=== PATIENT | male | born 1965 | race Caucasian/White ===

== ENCOUNTER 2017-09-09 18:49 | Inpatient (IN) | payer MEDICARE, MEDICAID ==
[~2017-09-09] VITALS: Ht 162.6 cm; Wt 63.6 kg
[2017-09-09] MEDS ORDERED: morphine 2 MG/ML inj. syringe IV PRN ×3 (19:10→21:45)
[2017-09-09] MEDS ORDERED: normal saline 1000ML IV soln IVB ONE (19:10)
[2017-09-09] MEDS ORDERED: azithromycin 250mg tablet PO ONE (19:25)
[2017-09-09] MEDS ORDERED: OMEP10CA4 PO (20:19)
[2017-09-09 20:53] LABS: BASOPHILS % (AUTO) 0.1 % (0-1); EOSINOPHILS # (AUTO) 0.1 X10'3 (0-0.9); HEMATOCRIT 41.5 % (42.0-52.0); HEMOGLOBIN 14.4 g/dl (14.0-17.9); LYMPHOCYTES # (AUTO) 0.9 X10'3 (1.1-4.8); LYMPHOCYTES % (AUTO) 10.7 % (21-51); MEAN CORPUSCULAR HEMOGLOBIN 34.7 PG (27.0-31.0); MEAN CORPUSCULAR HGB CONC 34.8 % (33.0-36.5); MEAN CORPUSCULAR VOLUME 99.6 FL (78-98); MEAN PLATELET VOLUME 7.2 FL (7.4-10.4); MONOCYTES # (AUTO) 0.7 X10'3 (0-0.9); NEUTROPHILS # (AUTO) 6.4 X10'3 (1.8-7.7); NEUTROPHILS % (AUTO) 79.2 % (42-75); PLATELET COUNT 248 X10'3 (140-440); RED BLOOD COUNT 4.16 X10'6 (4.70-6.10); RED CELL DISTRIBUTION WIDTH 13.9 % (11.5-14.5)
[2017-09-09] MEDS ORDERED: temazepam 15mg capsule PO PRN (21:00)
[2017-09-09 21:13] LABS: PARTIAL THROMBOPLASTIN TIME 25 SECONDS (22-32); PROTHROMBIN TIME 10.1 SECONDS (9.0-12.0)
[2017-09-09 21:17] LABS: ALANINE AMINOTRANSFERASE 28 U/L (12-78); ALBUMIN 2.5 G/DL (3.4-5.0); ALBUMIN/GLOBULIN RATIO 0.7 (1.1-1.5); ALKALINE PHOSPHATASE 58 IU/L (46-116); ANION GAP 7 (8-16); ASPARTATE AMINO TRANSFERASE 18 U/L (10-37); BILIRUBIN,TOTAL 0.5 MG/DL (0.1-1.0); BLOOD UREA NITROGEN 14 MG/DL (7-18); BUN/CREATININE RATIO 15.6 (5.4-32.0); CHLORIDE 111 MMOL/L (99-107); GLUCOSE 132 MG/DL (70-104); MAGNESIUM 1.7 MG/DL (1.5-2.4); POTASSIUM 3.3 MMOL/L (3.5-5.1); SODIUM 147 MMOL/L (135-145); TOTAL PROTEIN 6.3 G/DL (6.4-8.2); eGFR 90 ML/MIN
[2017-09-09] MEDS ORDERED: diphenhydrAMINE 25mg capsule PO PRN (21:45)
[2017-09-09] MEDS ORDERED: ondansetron/PF 4mg/2ml inj IV PRN (21:45)
[2017-09-09] MEDS ORDERED: potassium Cl 20 mEq SR tablet PO PRN (21:45)
[2017-09-09] MEDS ORDERED: diphenhydrAMINE 50 mg/ml inj IV PRN (21:45)
[2017-09-09] MEDS ORDERED: acetaminophen 325mg tablet PO PRN (21:45)
[2017-09-09] MEDS ORDERED: HYDROmorphone 1 mg/ml syringe IV PRN ×2 (21:45)
[2017-09-09] MEDS ORDERED: metoclopramide 5 mg/ml inj IV PRN (21:45)
[2017-09-09] MEDS ORDERED: acetaminophen 650mg rectal suppository RC PRN (21:45)
[2017-09-09] MEDS ORDERED: mag hydrox/Alum hydrox/simeth 30ml oral suspension PO PRN (21:45)
[2017-09-09] MEDS ORDERED: potassium Cl 40MEQ/NS 500ml 500 ML IV PRN ×2 (21:45)
[2017-09-09] MEDS ORDERED: bisacodyl 10mg suppository rectal RC PRN (21:45)
[2017-09-09] MEDS ORDERED: magnesium hydroxide 30ml (MOM) UD suspension PO PRN (21:45)
[2017-09-09] MEDS ORDERED: HYDROcodone/acetaminophen 10/325mg tab PO PRN (21:45)
[2017-09-09] MEDS ORDERED: HYDROcodone/acetaminophen 5mg/325mg tablet PO PRN (21:45)
[2017-09-09 22:06] LABS: PHOSPHORUS 3.4 MG/DL (2.3-4.5)
[2017-09-09 22:07] LABS: HEMOGLOBIN A1C 5.7 % (4.5-6.2)
[2017-09-09 22:27] VITALS: BP 129/78
[2017-09-09] MEDS: potassium Cl 20 mEq SR tablet PO PRN (23:06)
[2017-09-09] MEDS: normal saline 1000ml 1,000 ML IV SCH (23:08)
[2017-09-10 06:45] LABS: BASOPHILS # (AUTO) 0.1 X10'3 (0-0.2); BASOPHILS % (AUTO) 1.3 % (0-1); EOSINOPHILS # (AUTO) 0.1 X10'3 (0-0.9); EOSINOPHILS % (AUTO) 2.3 % (0-6); HEMATOCRIT 38.9 % (42.0-52.0); HEMOGLOBIN 13.9 g/dl (14.0-17.9); LYMPHOCYTES # (AUTO) 0.9 X10'3 (1.1-4.8); LYMPHOCYTES % (AUTO) 14.5 % (21-51); MEAN CORPUSCULAR HEMOGLOBIN 34.7 PG (27.0-31.0); MEAN CORPUSCULAR HGB CONC 35.7 % (33.0-36.5); MEAN CORPUSCULAR VOLUME 97.1 FL (78-98); MEAN PLATELET VOLUME 7.1 FL (7.4-10.4); MONOCYTES # (AUTO) 0.7 X10'3 (0-0.9); MONOCYTES % (AUTO) 11.6 % (2-12); NEUTROPHILS # (AUTO) 4.4 X10'3 (1.8-7.7); NEUTROPHILS % (AUTO) 70.3 % (42-75); PLATELET COUNT 237 X10'3 (140-440); RED BLOOD COUNT 4.01 X10'6 (4.70-6.10); RED CELL DISTRIBUTION WIDTH 14.3 % (11.5-14.5); WHITE BLOOD COUNT 6.3 X10'3 (4.5-11.0)
[2017-09-10 07:00] VITALS: BP 115/69
[2017-09-10 07:34] LABS: ALANINE AMINOTRANSFERASE 26 U/L (12-78); ALBUMIN 2.2 G/DL (3.4-5.0); ALBUMIN/GLOBULIN RATIO 0.6 (1.1-1.5); ALKALINE PHOSPHATASE 49 IU/L (46-116); ANION GAP 6 (8-16); ASPARTATE AMINO TRANSFERASE 21 U/L (10-37); BILIRUBIN,TOTAL 0.7 MG/DL (0.1-1.0); BLOOD UREA NITROGEN 12 MG/DL (7-18); CALCIUM 7.7 MG/DL (8.5-10.1); CHLORIDE 110 MMOL/L (99-107); GLUCOSE 111 MG/DL (70-104); MAGNESIUM 1.7 MG/DL (1.5-2.4); POTASSIUM 3.3 MMOL/L (3.5-5.1); SODIUM 146 MMOL/L (135-145); TOTAL CARBON DIOXIDE 29.6 MMOL/L (24-32); TOTAL PROTEIN 5.9 G/DL (6.4-8.2); eGFR > 90 ML/MIN
[2017-09-10] MEDS: heparin, porcine 5000 units/ml vial SQ SCH ×2 (07:52→19:18)
[2017-09-10] MEDS: pantoprazole 40mg Tablet.DR PO SCH (08:00)
[2017-09-10] MEDS: CefTRIAXone/D5W-Rocephin 1gm 50 ML IV SCH ×2 (08:00→19:17)
[2017-09-10] MEDS: azithromycin 250mg tablet PO SCH (08:00)
[2017-09-10] MEDS: docusate sod 100mg capsule PO SCH ×2 (08:01→19:16)
[2017-09-10] MEDS: normal saline 1000ml 1,000 ML IV SCH ×2 (08:02→19:16)
[2017-09-10 10:00] VITALS: BP 123/79
[2017-09-10 18:00] VITALS: BP 136/84
[2017-09-10] MEDS: potassium Cl 20 mEq SR tablet PO PRN ×2 (19:16→23:19)
[2017-09-10 22:20] VITALS: BP 124/85
[2017-09-10] MEDS: acetaminophen 325mg tablet PO PRN (22:26)
[2017-09-11] VITALS (17 sets, daily range): BP systolic 91–146; BP diastolic 74–94
[2017-09-11] MEDS: normal saline 1000ml 1,000 ML IV SCH ×3 (03:35→20:00)
[2017-09-11] MEDS: potassium Cl 20 mEq SR tablet PO PRN (03:35)
[2017-09-11 07:12] LABS: BASOPHILS # (AUTO) 0.1 X10'3 (0-0.2); BASOPHILS % (AUTO) 1.1 % (0-1); EOSINOPHILS # (AUTO) 0.1 X10'3 (0-0.9); EOSINOPHILS % (AUTO) 2.3 % (0-6); HEMATOCRIT 38.4 % (42.0-52.0); HEMOGLOBIN 13.6 g/dl (14.0-17.9); LYMPHOCYTES % (AUTO) 17.5 % (21-51); MEAN CORPUSCULAR HEMOGLOBIN 34.6 PG (27.0-31.0); MEAN CORPUSCULAR HGB CONC 35.3 % (33.0-36.5); MEAN CORPUSCULAR VOLUME 97.8 FL (78-98); MEAN PLATELET VOLUME 7.4 FL (7.4-10.4); MONOCYTES # (AUTO) 0.6 X10'3 (0-0.9); MONOCYTES % (AUTO) 10.8 % (2-12); NEUTROPHILS % (AUTO) 68.3 % (42-75); PLATELET COUNT 243 X10'3 (140-440); RED BLOOD COUNT 3.92 X10'6 (4.70-6.10); RED CELL DISTRIBUTION WIDTH 13.8 % (11.5-14.5); WHITE BLOOD COUNT 5.8 X10'3 (4.5-11.0)
[2017-09-11] MEDS: CefTRIAXone/D5W-Rocephin 1gm 50 ML IV SCH ×2 (07:24→21:59)
[2017-09-11 07:32] LABS: ALANINE AMINOTRANSFERASE 25 U/L (12-78); ALBUMIN 2.1 G/DL (3.4-5.0); ALBUMIN/GLOBULIN RATIO 0.6 (1.1-1.5); ALKALINE PHOSPHATASE 44 IU/L (46-116); ANION GAP 6 (8-16); ASPARTATE AMINO TRANSFERASE 18 U/L (10-37); BILIRUBIN,TOTAL 0.6 MG/DL (0.1-1.0); BLOOD UREA NITROGEN 10 MG/DL (7-18); BUN/CREATININE RATIO 12.5 (5.4-32.0); CALCIUM 7.7 MG/DL (8.5-10.1); CHLORIDE 110 MMOL/L (99-107); GLUCOSE 99 MG/DL (70-104); MAGNESIUM 1.7 MG/DL (1.5-2.4); POTASSIUM 3.4 MMOL/L (3.5-5.1); SODIUM 145 MMOL/L (135-145); TOTAL CARBON DIOXIDE 29.4 MMOL/L (24-32); TOTAL PROTEIN 5.8 G/DL (6.4-8.2); eGFR > 90 ML/MIN
[2017-09-11] MEDS: azithromycin 250mg tablet PO SCH (08:00)
[2017-09-11] MEDS ORDERED: cefazolin 1gm/NS 100mL 100 ML IV ONE (08:00)
[2017-09-11] MEDS: heparin, porcine 5000 units/ml vial SQ SCH ×2 (08:00→20:00)
[2017-09-11] MEDS: pantoprazole 40mg Tablet.DR PO SCH (08:00)
[2017-09-11] MEDS: docusate sod 100mg capsule PO SCH ×2 (08:00→20:00)
[2017-09-11] MEDS ORDERED: ringers solution, lacted 1,000 ML IV SCH (12:26)
[2017-09-11] MEDS ORDERED: morphine 2 MG/ML inj. syringe IV PRN ×2 (12:30)
[2017-09-11] MEDS ORDERED: meperidine/PF 25mg/ml syringe IV PRN ×3 (12:30)
[2017-09-11] MEDS ORDERED: ondansetron/PF 4mg/2ml inj IV PRN (12:30)
[2017-09-11] MEDS ORDERED: proCHLORperazine 10 MG/2 ml inj IV PRN (12:30)
[2017-09-11] MEDS ORDERED: phenylephrine 10mg/ml inj IV ONE (13:25)
[2017-09-11] MEDS ORDERED: fentaNYL/PF 50MCG/1 ML 2ML syringe ONE (13:31)
[2017-09-11] MEDS ORDERED: MIDAZolam 1mg/ml 10ml vial ONE (13:31)
[2017-09-11] MEDS ORDERED: BUPIVAcaine/PF 7.5mg/ml (0.75%) 10ml vial ONE (13:36)
[2017-09-11] MEDS ORDERED: albumin (Human) 5% 250ml 250 ML IV ONE (14:47)
[2017-09-11] MEDS ORDERED: BUPIVAcaine/PF 2.5 mg/ml (0.25%) 30ml vial ONE ×2 (15:29)
[2017-09-11] MEDS ORDERED: diphenhydrAMINE 25mg capsule PO PRN ×2 (15:45)
[2017-09-11] MEDS ORDERED: magnesium hydroxide 30ml (MOM) UD suspension PO PRN (15:45)
[2017-09-11] MEDS ORDERED: acetaminophen 325mg tablet PO PRN (15:45)
[2017-09-11] MEDS ORDERED: bisacodyl 10mg suppository rectal RC PRN (15:45)
[2017-09-11] MEDS: lactobacillus rhamnosus 10,000 MMU CELLS/CAPSULE PO SCH (17:46)
[2017-09-11] MEDS: cefazolin 1gm/NS 100mL 100 ML IV SCH (17:46)
[2017-09-11] MEDS: sennosides 8.6mg tablet PO SCH (21:00)
[2017-09-12] MEDS: cefazolin 1gm/NS 100mL 100 ML IV SCH (01:21)
[2017-09-12 01:40] VITALS: BP 131/78
[2017-09-12 02:00] VITALS: BP 131/78
[2017-09-12 05:00] VITALS: BP 119/86
[2017-09-12 06:41] LABS: BASOPHILS % (AUTO) 0.4 % (0-1); EOSINOPHILS % (AUTO) 0 % (0-6); HEMOGLOBIN 13.2 g/dl (14.0-17.9); LYMPHOCYTES # (AUTO) 0.6 X10'3 (1.1-4.8); MEAN CORPUSCULAR HEMOGLOBIN 34.4 PG (27.0-31.0); MEAN CORPUSCULAR HGB CONC 34.8 % (33.0-36.5); MEAN CORPUSCULAR VOLUME 98.9 FL (78-98); MEAN PLATELET VOLUME 7.4 FL (7.4-10.4); MONOCYTES # (AUTO) 0.7 X10'3 (0-0.9); MONOCYTES % (AUTO) 6.9 % (2-12); NEUTROPHILS # (AUTO) 8.4 X10'3 (1.8-7.7); NEUTROPHILS % (AUTO) 86.7 % (42-75); PLATELET COUNT 253 X10'3 (140-440); RED BLOOD COUNT 3.84 X10'6 (4.70-6.10); RED CELL DISTRIBUTION WIDTH 13.4 % (11.5-14.5); WHITE BLOOD COUNT 9.7 X10'3 (4.5-11.0)
[2017-09-12 07:07] LABS: ALANINE AMINOTRANSFERASE 20 U/L (12-78); ALBUMIN 2.1 G/DL (3.4-5.0); ALBUMIN/GLOBULIN RATIO 0.6 (1.1-1.5); ALKALINE PHOSPHATASE 44 IU/L (46-116); ANION GAP 6 (8-16); ASPARTATE AMINO TRANSFERASE 22 U/L (10-37); BILIRUBIN,TOTAL 0.5 MG/DL (0.1-1.0); BLOOD UREA NITROGEN 10 MG/DL (7-18); BUN/CREATININE RATIO 12.5 (5.4-32.0); CHLORIDE 109 MMOL/L (99-107); GLUCOSE 142 MG/DL (70-104); MAGNESIUM 1.7 MG/DL (1.5-2.4); POTASSIUM 3.7 MMOL/L (3.5-5.1); SODIUM 143 MMOL/L (135-145); TOTAL CARBON DIOXIDE 27.8 MMOL/L (24-32); TOTAL PROTEIN 5.7 G/DL (6.4-8.2); eGFR > 90 ML/MIN
[2017-09-12] MEDS: pantoprazole 40mg Tablet.DR PO SCH (07:27)
[2017-09-12] MEDS: docusate sod 100mg capsule PO SCH ×2 (07:27→20:28)
[2017-09-12] MEDS: azithromycin 250mg tablet PO SCH (07:28)
[2017-09-12] MEDS: lactobacillus rhamnosus 10,000 MMU CELLS/CAPSULE PO SCH ×2 (07:28→16:44)
[2017-09-12] MEDS: CefTRIAXone/D5W-Rocephin 1gm 50 ML IV SCH ×2 (07:29→20:28)
[2017-09-12] MEDS: heparin, porcine 5000 units/ml vial SQ SCH ×2 (07:29→20:28)
[2017-09-12] MEDS: normal saline 1000ml 1,000 ML IV SCH ×2 (09:13→17:18)
[2017-09-12 10:05] VITALS: BP 132/88
[2017-09-12 18:00] VITALS: BP 121/77
[2017-09-12] MEDS: sennosides 8.6mg tablet PO SCH (20:29)
[2017-09-12 22:00] VITALS: BP 119/77
[2017-09-13] MEDS: normal saline 1000ml 1,000 ML IV SCH (03:52)
[2017-09-13] MEDS: acetaminophen 325mg tablet PO PRN (03:54)
[2017-09-13 05:00] VITALS: BP 133/92
[2017-09-13 05:49] LABS: BASOPHILS % (AUTO) 0.1 % (0-1); EOSINOPHILS # (AUTO) 0.1 X10'3 (0-0.9); EOSINOPHILS % (AUTO) 1.4 % (0-6); HEMATOCRIT 38.5 % (42.0-52.0); HEMOGLOBIN 13.3 g/dl (14.0-17.9); LYMPHOCYTES # (AUTO) 0.9 X10'3 (1.1-4.8); LYMPHOCYTES % (AUTO) 9.1 % (21-51); MEAN CORPUSCULAR HEMOGLOBIN 34.3 PG (27.0-31.0); MEAN CORPUSCULAR HGB CONC 34.6 % (33.0-36.5); MEAN CORPUSCULAR VOLUME 99.2 FL (78-98); MEAN PLATELET VOLUME 7.5 FL (7.4-10.4); MONOCYTES # (AUTO) 0.9 X10'3 (0-0.9); MONOCYTES % (AUTO) 9.1 % (2-12); NEUTROPHILS # (AUTO) 8.2 X10'3 (1.8-7.7); NEUTROPHILS % (AUTO) 80.3 % (42-75); PLATELET COUNT 272 X10'3 (140-440); RED BLOOD COUNT 3.88 X10'6 (4.70-6.10); RED CELL DISTRIBUTION WIDTH 13.9 % (11.5-14.5); WHITE BLOOD COUNT 10.2 X10'3 (4.5-11.0)
[2017-09-13 06:37] LABS: ALANINE AMINOTRANSFERASE 18 U/L (12-78); ALBUMIN 2.2 G/DL (3.4-5.0); ALBUMIN/GLOBULIN RATIO 0.6 (1.1-1.5); ALKALINE PHOSPHATASE 44 IU/L (46-116); ANION GAP 9 (8-16); ASPARTATE AMINO TRANSFERASE 21 U/L (10-37); BILIRUBIN,TOTAL 0.5 MG/DL (0.1-1.0); BLOOD UREA NITROGEN 8 MG/DL (7-18); CALCIUM 8.1 MG/DL (8.5-10.1); CHLORIDE 108 MMOL/L (99-107); GLUCOSE 125 MG/DL (70-104); MAGNESIUM 1.6 MG/DL (1.5-2.4); POTASSIUM 3.2 MMOL/L (3.5-5.1); SODIUM 144 MMOL/L (135-145); TOTAL CARBON DIOXIDE 26.8 MMOL/L (24-32); TOTAL PROTEIN 6.1 G/DL (6.4-8.2); eGFR > 90 ML/MIN
[2017-09-13] MEDS ORDERED: potassium Cl 40MEQ/NS 500ml 500 ML IV PRN ×2 (06:45)
[2017-09-13] MEDS ORDERED: potassium Cl 20 mEq SR tablet PO PRN ×2 (06:45)
[2017-09-13] MEDS: docusate sod 100mg capsule PO SCH (07:12)
[2017-09-13] MEDS: CefTRIAXone/D5W-Rocephin 1gm 50 ML IV SCH (07:18)
[2017-09-13] MEDS: pantoprazole 40mg Tablet.DR PO SCH (07:18)
[2017-09-13] MEDS: lactobacillus rhamnosus 10,000 MMU CELLS/CAPSULE PO SCH (07:18)
[2017-09-13] MEDS: azithromycin 250mg tablet PO SCH (07:18)
[2017-09-13] MEDS: heparin, porcine 5000 units/ml vial SQ SCH (07:19)
[2017-09-13 09:45] VITALS: BP 127/80
[2017-09-13] MEDS ORDERED: CEPH250T PO (12:12)
[2017-09-13] MEDS ORDERED: NAPR500T4 PO (12:12)
[2017-09-13] MEDS ORDERED: PANT40TA4 PO (12:12)
[2017-09-13] MEDS ORDERED: POTA20TA10 PO (13:36)
== END 2017-09-13 14:32 | disposition home or self-care (01) | DRG 469 ==
LOC: ER 18:50 → ED HOLD 21:41 → EDBEDREQ 22:10 → ORTHO 4S 22:28
PROVIDERS: ADMIT Family Medicine; ATTEND Internal Medicine
PROC: 3E0T3BZ Introduction of Anesthetic Agent into Peripheral Nerves and Plexi, Percutaneous Approach (ICD-10-PCS; 2017-09-11)
PROC: 0SRR0J9 Replacement of Right Hip Joint, Femoral Surface with Synthetic Substitute, Cemented, Open Approach (ICD-10-PCS; principal; 2017-09-11 13:25)
DX: S72.001A Fracture of unspecified part of neck of right femur, initial encounter for closed fracture (principal); J18.1 Lobar pneumonia, unspecified organism; E87.0 Hyperosmolality and hypernatremia; I07.1 Rheumatic tricuspid insufficiency; K76.0 Fatty (change of) liver, not elsewhere classified; E86.0 Dehydration; N39.0 Urinary tract infection, site not specified; J98.11 Atelectasis; D62 Acute posthemorrhagic anemia; I34.0 Nonrheumatic mitral (valve) insufficiency; I35.1 Nonrheumatic aortic (valve) insufficiency; K44.9 Diaphragmatic hernia without obstruction or gangrene; K80.20 Calculus of gallbladder without cholecystitis without obstruction; E66.9 Obesity, unspecified; E87.6 Hypokalemia; W18.39XA Other fall on same level, initial encounter; K21.9 Gastro-esophageal reflux disease without esophagitis; Q90.9 Down syndrome, unspecified; Z79.899 Other long term (current) drug therapy; Z68.24 Body mass index [BMI] 24.0-24.9, adult; Y93.67 Activity, basketball; Y92.89 Other specified places as the place of occurrence of the external cause; Y99.8 Other external cause status
CPT/HCPCS: 36415; 71250; 73502; 80053; 83036; 83605; 83735; 84100; 85025; 85610; 85730; 86885; 86900; 86901; 87040; 87070; 93005; 93306; 96361; 96374; 97110; 97116; 97161; 97530; 99285; A4615; A6222; A6258; A6449; A6455; A7000; C1713; C1758; C1776; J0690; J0696; J1644; J2250; J2270; J2370; J3010; J3370; J3490; J7030; J7120; P9045